=== PATIENT | female | born 1990 | race Caucasian/White ===

== ENCOUNTER 2016-07-06 06:55 | Inpatient (IN) | payer MEDICAID ==
[~2016-07-06] VITALS: Ht 170.2 cm; Wt 82.1 kg
--- NOTE | ~2016-07-06 | HP ---
ADMIT: 07/06/2016 RM/LOC: 226 [facility] MR#: [id number] [address] [address] [place] [address] History and Physical SEX: F AGE: 26 : 1990 DATE OF SERVICE: CHIEF COMPLAINT: Uterine contractions. HISTORY OF PRESENT ILLNESS: The patient is a 26-year-old, 3, para 2-0- 0-2, with an intrauterine at 39-4/7th weeks by a 13-week ultrasound, who presented to Labor and Delivery with complaints of uterine contractions. The patient was initially 3 cm dilated but over several hours, changed her cervix to 6 cm dilated, and was therefore admitted for active labor. PAST MEDICAL HISTORY: 1. Anxiety. 2. Anemia during . 3. Excessive weight gain during . PAST SURGICAL HISTORY: None. FAMILY HISTORY: Maternal grandfather and paternal grandfather with diabetes. SOCIAL HISTORY: The patient denies alcohol, tobacco, or illicit drug use. She quit smoking in June of 2015. The patient attends [employer] and is employed part-time at a gas station. MEDICATIONS: 1. vitamins one tablet p.o. daily. 2. Ferrous gluconate one tablet p.o. daily. ALLERGIES: NO KNOWN MEDICAL ALLERGIES. REVIEW OF SYSTEMS: Significant for uterine contractions as described in history of present illness. The patient denies vaginal bleeding, loss of fluid, or decreased movement. OBSTETRIC LABORATORY DATA: Blood type A positive. Antibody screen negative. RPR nonreactive. Rubella immune. HIV negative. Gonorrhea and chlamydia negative. Hepatitis B surface antigen negative. Quad screen negative. Diabetic screen 78. Pap smear negative for intraepithelial lesion or malignancy. Group B strep positive. PHYSICAL EXAMINATION: GENERAL: A well-developed, well-nourished white female, alert and oriented x3, in mild distress with uterine contractions. VITAL SIGNS: Blood pressure 137/80, pulse 72, respirations 16, temperature 95.8 degrees Fahrenheit. Height 5 feet 7 inches and weight 183 pounds. HEENT: Head is normocephalic, atraumatic. Pupils are equal, round, and reactive. Extraocular muscles are intact. NECK: Supple. Trachea midline. Thyroid not palpable. HEART: Regular rate and rhythm. LUNGS: Clear to auscultation bilaterally. ABDOMEN: Soft, nontender, gravid. ADMIT: 07/06/2016 RM/LOC: 226 [facility] MR#: [id number] [address] [address] [place] [address] History and Physical SEX: F AGE: 26 : 1990 EXTREMITIES: No clubbing, cyanosis, or edema. NEUROLOGIC: Cranial nerves II through XII grossly intact. Deep tendon reflexes 2+ noted. PELVIC: Sterile vaginal examination by the nurse on admission reveals the cervix to be 3 cm dilated, 70% effaced, -2 station. heart tones are in the 120s to 130s with 15 x 15 accelerations, moderate long-term variability, and no decelerations. Uterine contractions are noted every 6 minutes on the monitor. ASSESSMENT AND PLAN: 1. This is a 26-year-old, 3, para 2-0-0-2, with an intrauterine at 39-4/7th weeks by a 13-week ultrasound, who presents to Labor and Delivery in active labor. 2. Group B Streptococcus positive. Penicillin will be provided for prophylaxis. 3. Fetus is vertex and overall reassuring. Lissa Starr MD/ andreea JOB #: [id number] CC: Lissa Starr, Attending Physician Lissa Starr, Family Physician
--- NOTE | ~2016-07-06 | FD ---
ADMIT: 07/06/2016 RM/LOC: 226 [facility] MR#: [id number] [address] [address] [place] [address] Final Diagnosis SEX: F AGE: 26 : 1990 ADMISSION DATE: 07/06/2016 DISCHARGE DATE: 07/08/2016 FINAL DIAGNOSIS: 1. Status post spontaneous vaginal delivery. 2. Anxiety. 3. Anemia during . 4. Excessive weight gain during . PROCEDURE: 1. Spontaneous vaginal delivery. 2. Removal of epidural catheter. Lissa Starr MD/ li JOB #: [id number] CC: Lissa Starr MD, Attending Physician Lissa Starr MD, Family Physician
[2016-07-09] MEDS ORDERED: PRENATAL VIT1 TAB PO (06:53)
[2016-07-09] MEDS ORDERED: MOTRIN-DPS800 MG PO (06:54)
[2016-07-09] MEDS ORDERED: LAN-O-SOOTHE7 GM TP (06:54)
[2016-07-09] MEDS ORDERED: NIPPLECREAM TP (06:54)
[2016-07-09] MEDS ORDERED: TYLENOL #3 DPS1 TAB PO (06:54)
[2016-07-09] MEDS ORDERED: COLACE-DPS100 MG PO (06:54)
--- NOTE | 2016-07-14 12:51 | OR ---
ADMIT: 07/06/2016 RM/LOC: 226 [facility] MR#: [id number] [address] [address] [place] [address] Operative/Delivery Room Report SEX: F AGE: 26 : 1990 SURGERY DATE: 07/06/2016 SURGEON: Lissa Starr MD The patient delivered a viable male by spontaneous vaginal delivery at 1806 hours. The infant was placed on the mother's abdomen, and the cord was doubly clamped cut. The was handed off to the awaiting nurse. Cord blood was sent. The 's weight was 3270 g. scores were 8 and 9. The placenta then delivered spontaneously intact with a three-vessel cord. Twenty units of Pitocin were infused with intravenous fluids. Examination of the perineum revealed no lacerations. Estimated blood loss for the entire procedure was 200 mL. The patient and are in her room in stable condition. The epidural catheter was removed intact without difficulty at the conclusion of the procedure. Lissa Starr MD/ andreea JOB #: [id number] CC: Lissa Starr, Attending Physician Lissa Starr, Family Physician
== END 2016-07-08 14:40 | disposition home or self-care (01) | DRG 775 ==
LOC: BC 06:55 → 2LDRP 06:55 → BC 07-09 08:00
PROVIDERS: ADMIT Obstetrics & Gynecology
PROC: 10E0XZZ Delivery of Products of Conception, External Approach (ICD-10-PCS; principal; 2016-07-06)
DX: O99.824 Streptococcus B carrier state complicating childbirth (principal); O99.02 Anemia complicating childbirth; D64.9 Anemia, unspecified; Z87.891 Personal history of nicotine dependence; Z3A.39 39 weeks gestation of pregnancy; Z37.0 Single live birth